=== PATIENT | male | born 1995 | race Caucasian/White ===

== ENCOUNTER 2024-03-09 14:24 | Emergency (ER) | payer OTHER ==
[~2024-03-09] VITALS: Ht 170.2 cm; Wt 92.5 kg
[2024-03-09] MEDS ORDERED: SODIUM CHLORIDE 0.9% 1,000 ML IV ONE (14:30)
[2024-03-09 14:46] LABS: BASOPHILS 0.2 % (0-2); EOSINOPHILS 0.4 % (0-6); HEMATOCRIT 36.8 % (35.0-50.0); HEMOGLOBIN 13.2 g/dL (12.0-18.0); LYMPHOCYTES 13.2 % (24-44); MCH 30.1 (27-36); MCHC 35.9 g/dl (30-36); MCV 83.8 fl (81-99); MONOCYTES 8.8 % (0-12); NEUTROPHILS 77.4 % (39-80); PLATELET COUNT 188 K/uL (140-440); RBC 4.39 M/ul (4.3-5.7); RDW 12.4 (10.5-15.0)
[2024-03-09 14:55] LABS: BILIRUBIN, URINE NEGATIVE (negative); BLOOD/HGB, URINE NEGATIVE (Negative); KETONE, URINE SMALL (Negative); LEUK ESTERASE, URINE NEGATIVE (negative); NITRITE, URINE NEGATIVE (negative)
[2024-03-09] MEDS ORDERED: LORazepam 2 MG/ML VIAL IV ONE (15:00)
[2024-03-09] MEDS ORDERED: ondansetron HCL 4 MG/2 ML VIAL IV ONE (15:00)
[2024-03-09 15:01] LABS: ALBUMIN 4.4 g/dL (3.4-5.0); ALBUMIN/GLOBULIN RATIO 1.69 (1.1-2.4); ALCOHOL, MEDICAL <3 ng/dL (<3); ALKALINE PHOSPHATASE 62 U/L (46-116); ALT (SGPT) 23 U/L (14-59); ANION GAP 16.7 (7-21); AST (SGOT) 20 U/L (15-37); BUN/CREATININE RATIO 11.11 (6.0-28.6); CALCIUM 8.7 mg/dL (8.5-10.1); CARBON DIOXIDE 23 mmol/L (21-32); CHLORIDE 69 mmol/L (98-107); CREATININE, SERUM 0.99 mg/dL (0.70-1.30); GLOMERULAR FILTRATION RATE,EST 105 mL/min (>60); POTASSIUM 2.7 mmol/L (3.5-5.1); UREA NITROGEN 11 mg/dL (7-18)
[2024-03-09 15:10] LABS: AMPHETAMINES, URINE NEGATIVE (NEGATIVE); BARBITURATES, URINE NEGATIVE (NEGATIVE); BENZODIAZEPINE, URINE NEGATIVE (NEGATIVE); BUPRENORPHINE, URINE NEGATIVE (NEGATIVE); CANNABINOID, URINE NEGATIVE (NEGATIVE); COCAINE, URINE NEGATIVE (NEGATIVE); ECSTASY, URINE NEGATIVE (NEGATIVE); FENTANYL, URINE NEGATIVE (NEGATIVE); METHADONE, URINE NEGATIVE (NEGATIVE); OPIATES, URINE NEGATIVE (NEGATIVE); OXYCODONE, URINE NEGATIVE (NEGATIVE); PHENCYCLIDINE, URINE NEGATIVE (NEGATIVE)
[2024-03-09 15:27] LABS: LACTIC ACID, BLOOD 4.7 mmol/L (0.4-2.0)
[2024-03-09 15:30] LABS: ALBUMIN 4.1 g/dL (3.4-5.0); ALBUMIN/GLOBULIN RATIO 1.64 (1.1-2.4); ANION GAP 20.6 (7-21); BUN/CREATININE RATIO 9.82 (6.0-28.6); CALCIUM 8.2 mg/dL (8.5-10.1); CREATININE, SERUM 1.12 mg/dL (0.70-1.30); MAGNESIUM 1.1 mg/dL (1.8-2.4); POTASSIUM 2.6 mmol/L (3.5-5.1); PROTEIN, TOTAL 6.6 g/dL (6.4-8.2)
[2024-03-09] MEDS ORDERED: Sodium Chloride 3% 100 ML IV SCH (15:45)
[2024-03-09] MEDS ORDERED: POTASSIUM CHLORIDE 10 MEQ/100 ML BAG IV ONE (16:30)
[2024-03-09 16:54] LABS: ANION GAP 10.9 (7-21); BUN/CREATININE RATIO 12.5 (6.0-28.6); CALCIUM 7.5 mg/dL (8.5-10.1); CREATININE, SERUM 0.8 mg/dL (0.70-1.30); POTASSIUM 2.9 mmol/L (3.5-5.1)
[2024-03-09] MEDS ORDERED: DEXTROSE 5% IV ONE (18:30)
[2024-03-09] MEDS ORDERED: DESMOPRESSIN ACETATE IV ONE (18:30)
[2024-03-09] MEDS ORDERED: DESMOPRESSIN ACETATE 4 MCG/ML IV ONE (18:45)
[2024-03-09 19:01] LABS: ANION GAP 10.3 (7-21); BUN/CREATININE RATIO 11.84 (6.0-28.6); CALCIUM 8.1 mg/dL (8.5-10.1); CREATININE, SERUM 0.76 mg/dL (0.70-1.30); POTASSIUM 3.3 mmol/L (3.5-5.1)
[2024-03-09 20:55] VITALS: BP 125/69
--- NOTE | 2024-03-10 09:23 | EKG ---
[facility] [address] [place] [address] Signed Normal sinus rhythm Nonspecific T wave abnormality Prolonged QT Abnormal ECG No previous ECGs available Confirmed by Clarisa Bates MD () on 03/10/2024 9:23:43 AM Electronically Signed By: CLARISA BATES MD 03/10/24922 PATIENT NAME: LUIS RIVERA Electrocardiogram DATE OF : [birth year] PHYSICIAN: CLARISA BATES MD REPORT #: [id number] REPORT IS CONFIDENTIAL AND NOT TO BE RELEASED WITHOUT AUTHORIZATION
== END 2024-03-09 20:55 | disposition home or self-care (01) ==
LOC: ED 14:24
PROVIDERS: Emergency Medicine
DX: E87.1 Hypo-osmolality and hyponatremia (principal)
CPT/HCPCS: 36415; 51702; 80048; 80053; 80307; 81003; 83605; 83735; 85025; 93005; 93010; 99285-25; G0480; J2060; J2405; J2597; J3480; J7030; J7131